=== PATIENT | male | born 1955 | race Caucasian/White ===

== ENCOUNTER → 2017-06-24 10:38 | Outpatient (REF) | payer OTHER, SELFPAY ==
[2017-06-24 13:33] LABS: Basophils # 0.1 K/mm3 (0-0.2); Basophils % 1.1 % (0.1-2.0); Eosinophils # 0.2 K/mm3 (0.0-0.4); Eosinophils % 2.8 % (0.1-12.0); Hematocrit 49.4 % (42.0-52.0); Hemoglobin 16.1 g/dL (14.1-18.0); Lymphocytes # 1.7 K/mm3 (0.7-4.5); Lymphocytes % 27.9 K/mm3 (10-50); Mean Corpuscular HGB Conc 32.6 g/dL (31.8-35.4); Mean Corpuscular Hemoglobin 29.7 pg (27.0-31.2); Mean Corpuscular Volume 91.3 fl (80-94); Monocytes # 0.3 K/mm3 (0.1-1.0); Monocytes % 5.4 % (1.7-9.3); Neutrophils # 3.9 K/mm3 (1.8-7.8); Neutrophils % 62.8 % (37.0-80.0); Platelet Count 283 K/mm3 (142-424); Red Blood Count 5.41 M/mm3 (4.60-6.20); Red Cell Distribution Width 13.4 % (11.5-17.5); White Blood Count 6.1 K/mm3 (4.8-10.8)
[2017-06-24 14:14] LABS: Alanine Aminotransferase 34 U/L (12-78); Albumin Level 4.2 gm/dL (3.4-5.0); Albumin/Globulin Ratio 1.3 (1.1-1.8); Alkaline Phosphatase 77 U/L (46-116); Anion Gap 12.7 mEq/L (5-15); Aspartate Amino Transferase 14 U/L (15-37); Bilirubin,Total 0.4 mg/dL (0.2-1.0); Blood Urea Nitrogen 18 mg/dL (7-18); Calcium 9.1 mg/dL (8.5-10.1); Carbon Dioxide 28 mmol/L (21.0-32.0); Chloride 105 mmol/L (98-107); Cholesterol 214 mg/dL (140-200); Estimated Glomerular Filt Rate 69 ml/min (>60); Free T4 (Free Thyroxine) 1.02 ng/dl (0.76-1.46); GFR (African American) 83 ML/MIN (>60); Globulin 3.3 gm/dl (1.3-3.2); Glucose 104 mg/dL (74-106); HDL Cholesterol 43 mg/dL (27-67); LDL Cholesterol 133 mg/dL (0-130); Potassium 4.7 mmoL/L (3.5-5.1); Sodium 141 mmol/L (136-145); Thyroid Stimulating Hormone 1.95 uIU/ml (0.358-3.740); Total Protein,Serum 7.5 gm/dL (6.4-8.2); Triglycerides 192 mg/dL (30-200); VLDL Cholesterol 38 mg/dL (0-40)
[2017-06-25 09:35] LABS: Prostate Specific Ag 1.1 ng/mL (0.0-4.0); Vitamin D 25 Hydroxy 26.5 ng/mL (30.0-100.0)
== END ==
LOC: LAB 10:38
PROVIDERS: Visit Provider Emergency Medicine
DX: R53.83 Other fatigue (principal)
CPT/HCPCS: 80053; 80061; 82652; 84153; 84154; 84439; 84443; 85025

== ENCOUNTER → 2019-12-06 09:11 | Outpatient (CLI) | payer OTHER, SELFPAY ==
--- NOTE | 2019-12-06 | MR_ITS ---
PROCEDURE: MR HIP LT WO CON CLINICAL INDICATION: LEFT HIP PAIN P. C/O LEFT HIP PAIN WITH NO KNOWN TRAUMA OR INJURY. COMPARISON: No exams were available for comparison TECHNIQUE: Routine multiplanar multi echo sequences are performed without gadolinium enhancement. FINDINGS: There is faint decreased T1 and increased T2 signal involving the lateral aspect of the femoral head and lateral subcapital region. There is a small focal area of more prominent decreased T1 and increased T2 signal in the subcortical region of the femoral head laterally. This area measures approximately 3 mm. The etiology of the bone marrow edema is uncertain. The findings are not typical for avascular necrosis. There are moderate osteoarthritic changes of the hips. There is some cortical irregularity involving the acetabulum superiorly at this region as well.. There is a small hip joint effusion on the left. Incidental note is made sigmoid diverticulosis. IMPRESSION: Moderate osteoarthritic changes of the hips. Mild amount of bone marrow edema in the femoral head laterally as described above along with some cortical irregularity of the acetabulum at the same region. The edema may be related to osteoarthritis with possible early developing sub chondral cystic change in the acetabulum and femoral head. The acetabular labrum is not well delineated without intra-articular contrast. Differential diagnosis for bone marrow edema would include inflammation, infection, or neoplasm as well. Follow-up is suggested. Suggest radiographic correlation if not already performed. Dictated by: William Mazariegos MD 12/08/2019 09:11 William Mazariegos MD in [place] 12/08/2019 09:11
== END ==
PROVIDERS: PCP Family Medicine; Visit Provider Nurse Practitioner
DX: M25.552 Pain in left hip (principal)
CPT/HCPCS: 73721

== ENCOUNTER → 2020-06-05 09:48 | Outpatient (CLI) | payer OTHER, SELFPAY ==
--- NOTE | 2020-06-05 09:54 | XR_ITS ---
PROCEDURE: XR HIP LT 2-3V W/PELVIS CLINICAL INDICATION: HIP PAIN COMPARISON: No exams were available for comparison FINDINGS: No fracture or dislocation is evident. There is rather severe degenerative changes of both hips with asymmetrical joint space narrowing bilaterally. Changes are more prominent left side than right. There is sclerosis and spurring of the roof of the acetabulum bilaterally. There is prominent spurring of the inferior lip of the acetabulum bilaterally as well. The SI joints and symphysis pubis appear normal. IMPRESSION: Rather severe osteoarthrosis of both hips but more prominent left side than right Dictated by: Dr. Jairo Vergara MD 06/05/2020 13:40 Dr. Jairo Vergara MD in [place] 06/05/2020 13:40
== END ==
PROVIDERS: PCP Family Medicine; Visit Provider Family Medicine
DX: M25.552 Pain in left hip (principal)
CPT/HCPCS: 73502

== ENCOUNTER 2020-12-10 01:39 | Emergency (ER) | payer OTHER, SELFPAY ==
[2020-12-10 02:03] VITALS: BP 152/87; PULSE 90; RESP 18; TEMP 36.6; O2SAT 96; BMI 37.3
[2020-12-10 02:38] LABS: Basophils # 0.1 K/mm3 (0-0.2); Basophils % 0.9 % (0.1-2.0); Eosinophils # 0.2 K/mm3 (0.0-0.4); Hematocrit 43.9 % (42.0-52.0); Lymphocytes # 1.7 K/mm3 (0.7-4.5); Lymphocytes % 21.6 % (10-50); Mean Corpuscular HGB Conc 31.9 g/dL (31.8-35.4); Mean Corpuscular Hemoglobin 29.4 pg (27.0-31.2); Mean Corpuscular Volume 92.3 fl (80-94); Mean Platelet Volume 7.6 fl (7.4-10.4); Monocytes # 0.5 K/mm3 (0.1-1.0); Monocytes % 5.8 % (1.7-9.3); Neutrophils # 5.5 K/mm3 (1.8-7.8); Neutrophils % 68.9 % (37.0-80.0); Platelet Count 264 K/mm3 (142-424); Red Blood Count 4.76 M/mm3 (4.60-6.20); Red Cell Distribution Width 13.2 % (11.5-17.5)
--- NOTE | 2020-12-10 02:45 | PC.NURSE ---
Pt refused medication and fluids, he agreed to Blood work only because he is private pay. Pt does not wish to have X-Rays or meds.
[2020-12-10 02:51] LABS: Alanine Aminotransferase 17 U/L (12-78); Albumin Level 4.2 g/dl (3.5-5.0); Albumin/Globulin Ratio 1.4 (1.1-1.8); Alkaline Phosphatase 92 U/L (38-126); Anion Gap 15.1 mEq/L (5-15); Aspartate Amino Transferase 22 U/L (17-59); Bilirubin,Total 0.3 mg/dl (0.2-1.3); Blood Urea Nitrogen 20 mg/dl (9-20); Calcium 8.7 mg/dl (8.4-10.2); Carbon Dioxide 26 mmol/L (22.0-30.0); Chloride 104 mmol/L (98-107); Creatinine Clearance Estimated 123 mL/min (50-200); Estimated Glomerular Filt Rate 85 ml/min (>60); GFR (African American) 103 ML/MIN (>60); Globulin 2.9 g/dL (1.3-3.2); Glucose 109 mg/dl (74-100); Potassium 4.1 mmoL/L (3.5-5.1); Sodium 141 mmol/L (136-145); Total Protein,Serum 7.1 g/dl (6.3-8.2)
[2020-12-10 02:56] LABS: C-Reactive Protein 11.9 mg/L (0-4)
[2020-12-10 03:01] LABS: Erythrocyte Sedimentation Rate 23 mm/hr (0-20)
[2020-12-10 03:10] LABS: Procalcitonin 0.085 ng/mL (0.0-2.0)
[2020-12-10 03:21] VITALS: BP 000/00; PULSE 0; RESP 0; TEMP -17.7; TEMP 0; O2SAT 0
== END 2020-12-10 03:24 | disposition left against medical advice (07) ==
PROVIDERS: Emergency Provider Emergency Medicine; PCP Family Medicine
DX: Z53.21 Procedure and treatment not carried out due to patient leaving prior to being seen by health care provider (principal)
CPT/HCPCS: 80053; 84145; 85025; 85651; 86140; 99211

== ENCOUNTER 2023-11-06 07:51 | Outpatient (CLI) | payer MEDICARE, SELFPAY ==
--- NOTE | 2023-11-06 07:55 | CT_ITS ---
FINAL REPORT TECHNIQUE: Axial images were obtained from the lung apex to the mid abdomen by computed tomography. This study was performed with techniques to keep radiation doses as low as reasonably achievable (ALARA). Individualized dose reduction techniques using automated exposure control or adjustment of mA and/or kV according to the patient's size were employed. CLINICAL HISTORY: SCREENING FORMER SMOKER QUIT 30+ YEARS AGO, 1/2PPD X10 YEARS FINDINGS: CHEST CT LOW DOSE CTDI vol (mGy): 2.90 DLP (mGy-cm): 103.42 There is no axillary adenopathy. There are calcified right paratracheal and subcarinal lymph nodes. There is densely calcified coronary arteries. The heart is normal in size. There is no pericardial or pleural effusion. There is a pleural-based noncalcified nodule in the posterior medial left thorax measuring 10 mm. This is well seen on image 43 of series 3. There is an additional pleural-based nodule measuring 9 mm well seen on image 40 of series 3. There is scarring at the bases. Limited images of the upper abdomen are unremarkable. IMPRESSION: Nodules as detailed above. Lung RADS category 4A. Recommend 3 month follow-up low-dose chest CT. Reviewed, Interpreted and Dictated by Parish Jo MD Transcribed by Elizabeth Campbell Authenticated and [facility]
== END 2023-11-06 23:59 | disposition home or self-care (01) ==
LOC: RAD 07:51
PROVIDERS: PCP Family Medicine; Visit Provider Family Medicine
DX: Z87.891 Personal history of nicotine dependence (principal); B39.9 Histoplasmosis, unspecified
CPT/HCPCS: 71271

== ENCOUNTER 2024-08-31 13:30 | Outpatient (CLI) | payer MEDICARE, SELFPAY ==
--- NOTE | 2024-08-31 13:39 | XR_ITS ---
FINAL REPORT CLINICAL HISTORY: PAIN post fall 2 weeks ago FINDINGS: LEFT SHOULDER Three views were obtained. There is no fracture or dislocation. There are moderately advanced hypertrophic changes of the AC joint. No soft tissue abnormality is identified. IMPRESSION: No acute process. Reviewed, Interpreted and Dictated by Parish Jo MD Transcribed by Elizabeth Campbell Authenticated and [facility]
== END 2024-08-31 23:59 | disposition home or self-care (01) ==
LOC: RAD 13:31
PROVIDERS: PCP Family Medicine; Visit Provider Family Medicine
DX: M25.512 Pain in left shoulder (principal)
CPT/HCPCS: 73030

== ENCOUNTER 2024-10-03 08:00 | Outpatient (RCR) | payer MEDICARE, SELFPAY | END 2024-10-03 23:59 | disposition home or self-care (01) | LOC: OT 08:00 | PROVIDERS: Visit Provider Family Medicine | DX: M19.90 Unspecified osteoarthritis, unspecified site (principal) | CPT/HCPCS: 97014; 97032; 97110; 97140; 97166; 97168; G0283 ==

== ENCOUNTER 2024-10-31 08:00 | Outpatient (RCR) | payer MEDICARE, SELFPAY | END 2024-10-31 23:59 | disposition home or self-care (01) | LOC: OT 08:00 | PROVIDERS: Visit Provider Family Medicine | DX: M19.90 Unspecified osteoarthritis, unspecified site (principal) | CPT/HCPCS: 97010; 97014; 97032; 97110; 97140; G0283 ==

== ENCOUNTER 2024-10-31 08:51 | Outpatient (CLI) | payer MEDICARE, SELFPAY ==
--- OUTSIDE RECORDS SUMMARY | 2024-10-31 08:53 | XMS_ITS ---
Author Organization Unknown Vital Signs BpStanding BpSitting BpSupine Date Temperature HeartRate Weight Hei ght Spo2 Respiration Bmi HeadCircumference FieldCount TimeRecorded NeckCircumferen ce WaistCircumference Pulse 130/70 10/26 00:00 :00 97.8 279,0 5,10 40.0 3 5 10/28/2024 09:00:00 124/80 09/28 00:00 :00 98 280,0 5,10 40.1 7 5 10/28/2024 09:30:00 138/74 08/31 00:00 :00 98.6 77 281,9.6 0 5,10 98 40.4 7 10/28/2024 11:15:00 148/80 08/16 00:00 :00 98.0 76 282,0 5,10 97 40.4 6 7 10/28/2024 09:30:00 140/82 05/11 00:00 :00 98.6 74 280,0 5,10 95 40.1 7 7 10/28/2024 08:30:00 120/62 11/30 00:00 :00 98.6 81 282,0 5,10 91 40.4 6 7 10/28/2024 08:15:00
--- NOTE | 2024-10-31 08:55 | MR_ITS ---
FINAL REPORT TECHNIQUE: Multiplanar and multisequence imaging of the left shoulder was obtained without contrast. CLINICAL HISTORY: LT SHOULDER PAIN, limited rom FINDINGS: Bones and joints: There is no acute fracture, edema, or pathologic marrow replacement. Acromioclavicular joint degenerative disease is present and there is osteophytosis which narrows the supraspinatus outlet. There is also mild glenohumeral joint disease. Rotator cuff: There is a full-thickness supraspinatus tear which extends into the inferior infraspinatus. There is a more posterior partial thickness articular sided infraspinatus tear. The subscapularis is partially torn. There is no fatty atrophy of the rotator cuff muscles. Labrum: There is a tear of the biceps tendon at the biceps labral complex. There is a SLAP type II tear of the superior labrum. The inferior glenohumeral ligament is intact. Other: There is a small joint effusion and there is fluid about the subdeltoid and subcoracoid bursa. IMPRESSION: Full-thickness supraspinatus tear which extends to the anterior infraspinatus. Partial infraspinatus and subscapularis tear. Tear of the biceps tendon at the biceps labral complex. SLAP type II tear of the labrum. Reviewed, Interpreted and Dictated by Alicia Martinez MD Transcribed by MICHELE Cortez Authenticated and [facility]
== END 2024-10-31 23:59 | disposition home or self-care (01) ==
LOC: RAD 08:51
PROVIDERS: PCP Family Medicine; Visit Provider Family Medicine
DX: S43.432A Superior glenoid labrum lesion of left shoulder, initial encounter (principal); S46.212A Strain of muscle, fascia and tendon of other parts of biceps, left arm, initial encounter; M75.122 Complete rotator cuff tear or rupture of left shoulder, not specified as traumatic; M75.112 Incomplete rotator cuff tear or rupture of left shoulder, not specified as traumatic
CPT/HCPCS: 73221

== ENCOUNTER 2024-11-28 08:00 | Outpatient (RCR) | payer MEDICARE, SELFPAY | END 2024-11-28 23:59 | disposition home or self-care (01) | LOC: OT 08:00 | PROVIDERS: Visit Provider Family Medicine | DX: M19.012 Primary osteoarthritis, left shoulder (principal) | CPT/HCPCS: 97014; 97110; 97140; G0283 ==

== ENCOUNTER 2025-01-19 10:23 | Outpatient (CLI) | payer MEDICARE, OTHER, SELFPAY ==
--- OUTSIDE RECORDS SUMMARY | 2024-12-24 05:00 | XMS_ITS ---
Author Organization [facility] Address [address] [address] Care Team Providers Care Hand Quilter Name Role Phone Migration, Provider Unavailable Unavailable REASON FOR VISIT EMR-Get Encounters Encounter Location Date Provider Diagnosis [facility] [address] [address] 12/24/2024 Provider Migration Plan Of Treatment Medication Medication Name Sig Start Date Stop Date Notes Polytrim in right eye 12/17/2018 *Reorder fro m Medispan for eRx and Interaction Alerts* Progress Notes * MARISELA DOANDOB:1955 (69 yo M)Acc No.[id number]:12/24/2024 Patient: MARISELA MASON :1955 A ge:69 Y S ex:Male Phone: Address:[address] [place] [address], [address] * Refills Stop Polytrim, in right eye Subjective: * Chief Complaints: * E MR-Get * * Date:
--- OUTSIDE RECORDS SUMMARY | 2024-12-25 05:00 | XMS_ITS ---
Author Organization [facility] Address [address] [address] Care Team Providers Care Utility Bill Collection Clerk Name Role Phone Migration, Provider Unavailable Unavailable Allergies No Known Allergies REASON FOR VISIT EMR-Get Encounters Encounter Location Date Provider Diagnosis [facility] [address] [address] 12/25/2024 Provider Migration Plan Of Treatment No Information Progress Notes * VILMAMARISELA SORTODOB:1955 (69 yo M)Acc No.[id number]:12/25/2024 Patient: MARISELA MASON :1955 A ge:69 Y S ex:Male Phone: Address:[address] [place] [address], [phone] Subjective: * Chief Complaints: * E MR-Get * Allergies: N .K.D.A. * * Date:
--- NOTE | 2025-01-19 10:33 | XR_ITS ---
FINAL REPORT CLINICAL HISTORY: ACUTE PAIN RT KNEE FINDINGS: AP, lateral and oblique views of the right knee were obtained. There is no prior exam for comparison. There is no acute osseous abnormality of the right knee. There is mild degenerative joint disease. The soft tissues are normal. There is no joint effusion. IMPRESSION: No acute osseous abnormality of the right knee. Reviewed, Interpreted and Dictated by Alicia Martinez MD Transcribed by Elizabeth Campbell Authenticated and [facility]
--- OUTSIDE RECORDS SUMMARY | 2025-01-19 10:41 | XMS_ITS | Patient Health Record ---
Author [facility] Address [address] [facility] [address] [id number] Care Team Providers Care Accelerator Operator Name Role Phone Rian Valdovinos Primary Care Provider Reason For Referral No Information Medications Medication SIG (Take, Route, Frequency, Duration) Notes Start Date End Date Status Aspirin 81 MG 1 tab(s) orally once a day Active CORTISPORIN OTIC 1%-0.35%-57957 UNITS/ML 2 GTT IN EACH AFFECTED EAR 4 TIMES A DAY; Duration: 7 DAY(S) prn *Please review for potential replacement for e-prescription and drug interaction check* 05/13/2013 Active Ventolin HFA 108 (90 Base) MCG/ACT 2 puff(s) inhaled 4 times a day prn, allergic to corn dust and harvest corn prn Active Symbicort 160-4.5 MCG/ACT 2 puff(s) inhaled 2 times a day as needed prn 11/03/2013 Active Problems Problem Type SNOMED Code ICD Code Onset Dates Problem Status W/U Status Risk Notes Problem Allergic rhinitis (44320456) ALLERGIC RHINITIS NOS (477.9) Active confirmed Problem Asthma (878070042) ASTHMA NOS (493.90) Active confirmed Plan Of Treatment No Information Insurance Providers Payer Name Payer Address Payer Phone Subscriber Number Group Number Insured Name Patient Relationship to Insured Coverage Start Date Coverage End Date [employer] [place] [address] [place] [address] [id number] Aliza Trevizo Self - patient is the insured Medical (General) History Medical History History ICD Code asthma, exacerbations triggered by agric ulture dust (corn & soybeans) Surgical History Surgery Date(Month/Year) tonsillectomy Hospitalization History Reason Date(Month/Year) see above
--- OUTSIDE RECORDS SUMMARY | 2025-01-19 10:41 | XMS_ITS | Patient Health Record ---
Author Organization [facility] Address [address] [place] [address] Care Team Providers Care Tire Bladder Maker Name Role Phone Migration, Provider Unavailable Unavailable Allergies No Known Allergies Reason For Referral No Information Encounters Encounter Location Date Provider Diagnosis [facility] [address] [place] [address] 12/24/2024 Provider Migration [facility] [address] [place] [address] 12/25/2024 Provider Migration Plan Of Treatment No Information
== END 2025-01-19 23:59 | disposition home or self-care (01) ==
LOC: RAD 10:26
PROVIDERS: PCP Family Medicine; Visit Provider Nurse Practitioner Family
DX: M25.561 Pain in right knee (principal); R60.0 Localized edema
CPT/HCPCS: 73562

== ENCOUNTER 2025-01-20 08:20 | Outpatient (CLI) | payer MEDICARE, OTHER, SELFPAY ==
--- OUTSIDE RECORDS SUMMARY | 2024-12-24 05:00 | XMS_ITS ---
Author Organization [facility] [place] [facility] Address [address] [address] Care Team Providers Care Switchman Name Role Phone Migration, Provider Unavailable Unavailable REASON FOR VISIT EMR-Get Encounters Encounter Location Date Provider Diagnosis [facility] [address] [address] 12/24/2024 Provider Migration Plan Of Treatment Medication Medication Name Sig Start Date Stop Date Notes Polytrim in right eye 12/17/2018 *Reorder fro m Medispan for eRx and Interaction Alerts* Progress Notes * MARISELA DOANDOB:1955 (69 yo M)Acc No.[id number]:12/24/2024 Patient: MARISELA MASON :1955 A ge:69 Y S ex:Male Phone: Address:[address] [place] [address], [phone] * Refills Stop Polytrim, in right eye Subjective: * Chief Complaints: * E MR-Get * * Date:
--- OUTSIDE RECORDS SUMMARY | 2024-12-25 05:00 | XMS_ITS ---
Author Organization [facility] Address [address] [address] Care Team Providers Care Mold Maker Apprentice Name Role Phone Migration, Provider Unavailable Unavailable Allergies No Known Allergies REASON FOR VISIT EMR-Get Encounters Encounter Location Date Provider Diagnosis [facility] [address] [address] 12/25/2024 Provider Migration Plan Of Treatment No Information Progress Notes * VILMAMARISELA SORTODOB:1955 (69 yo M)Acc No.[id number]:12/25/2024 Patient: MARISELA MASON :1955 A ge:69 Y S ex:Male Phone: Address:[address] [place] [address], [phone] Subjective: * Chief Complaints: * E MR-Get * Allergies: N .K.D.A. * * Date:
--- NOTE | 2025-01-20 08:23 | CA_ITS ---
FINAL REPORT CLINICAL HISTORY: Right knee/ankle pain and edema, no known injury FINDINGS: DUPLEX VENOUS SONOGRAPHY OF THE RIGHT LOWER EXTREMITY Multiple transverse and longitudinal scans were performed of the femoropopliteal deep venous system, with augmentation and compression maneuvers. FINDINGS: Normal phasic flow was noted in the visualized deep venous system. No intraluminal increased echogenicity is noted to suggest thrombus. There is normal compression and augmentation of the venous structures. No abnormal venous collaterals are seen. IMPRESSION: No evidence of deep venous thrombosis of the right lower extremity. Reviewed, Interpreted and Dictated by Alicia Martinez MD Transcribed by Delmis Marshall Authenticated and [facility]
--- OUTSIDE RECORDS SUMMARY | 2025-01-20 08:23 | XMS_ITS | Patient Health Record ---
Author Organization [facility] Address [address] [place] [phone] Care Team Providers Care Client Engagement Specialist Name Role Phone Migration, Provider Unavailable Unavailable Allergies No Known Allergies Reason For Referral No Information Encounters Encounter Location Date Provider Diagnosis [facility] [address] [place] [phone] 12/24/2024 Provider Migration [facility] [address] [place] [address] 12/25/2024 Provider Migration Plan Of Treatment No Information
--- OUTSIDE RECORDS SUMMARY | 2025-01-20 08:24 | XMS_ITS | Patient Health Record ---
[facility] [address] [facility] [address] [id number] Care Team Providers Care Bundle Breaker Name Role Phone Rian Valdovinos Primary Care Provider Reason For Referral No Information Medications Medication SIG (Take, Route, Frequency, Duration) Notes Start Date End Date Status Aspirin 81 MG 1 tab(s) orally once a day Active CORTISPORIN OTIC 1%-0.35%-97126 UNITS/ML 2 GTT IN EACH AFFECTED EAR [...] W/U Status Risk Notes Problem Allergic rhinitis (43993126) ALLERGIC RHINITIS NOS (477.9) Active confirmed Problem Asthma (177447422) ASTHMA NOS (493.90) Active confirmed Plan Of Treatment No Information Insurance Providers Payer Name Payer Address Payer Phone Subscriber Number Group Number Insured Name Patient Relationship to Insured Coverage Start Date Coverage End Date [employer] [place] [address] [place] [phone] [id number] Aliza Trevizo Self - patient is the insured Medical (General) History Medical History History ICD Code asthma, exacerbations triggered by agric ulture dust (corn & soybeans) Surgical History Surgery Date(Month/Year) tonsillectomy Hospitalization History Reason Date(Month/Year) see above
== END 2025-01-20 23:59 | disposition home or self-care (01) ==
LOC: RT 08:21
PROVIDERS: PCP Nurse Practitioner Family; Visit Provider Nurse Practitioner Family
DX: M79.604 Pain in right leg (principal); M25.561 Pain in right knee; R60.0 Localized edema
CPT/HCPCS: 93971

== ENCOUNTER 2025-03-01 08:00 | Outpatient (RCR) | payer MEDICARE, OTHER, SELFPAY | END 2025-03-01 23:59 | disposition home or self-care (01) | LOC: PT 08:00 | PROVIDERS: PCP Nurse Practitioner Family; Visit Provider Family Medicine | DX: M25.561 Pain in right knee (principal) | CPT/HCPCS: 97110; 97161 ==